=== PATIENT | male | born 1985 | race Caucasian/White ===

== ENCOUNTER 2016-08-31 22:21 | Inpatient (IN) | payer MEDICAID ==
[~2016-08-31] VITALS: Ht 175.3 cm; Wt 78.9 kg
[2016-08-31 23:11] LABS: Basophils # (auto) 0 uL; Basophils % (auto) 0.4 % (0.0-2.0); Eosinophils # (auto) 0.5 uL; Eosinophils % (auto) 5.2 % (0.0-7.0); Hematocrit 41.8 % (41.0-53.0); Hemoglobin 13.4 g/dL (13.5-17.5); Lymphocytes # (auto) 1.7 uL; Lymphocytes % (auto) 16.1 % (10.0-50.0); Mean Corpuscular Hemoglobin 29.8 pg (28.0-32.0); Mean Corpuscular Volume 92.9 fL (80.0-100.0); Mean Platelet Volume 7.4 fL (7.4-10.4); Monocytes # (auto) 0.9 uL; Neutrophils # (auto) 7.1 uL; Neutrophils % (auto) 69.3 % (37.0-80.0); Platelet Count (auto) 372 10^3/uL (140-450); Red Cell Distribution Width 12.6 % (11.6-16.0); White Blood Cell 10.3 10^3/uL (4.4-10.8)
[2016-08-31 23:27] LABS: INR 1.06 (0.9-1.15); Partial Thromboplastin Time 26.6 sec (22.64-33.71); Prothrombin Time 10.9 sec (9.37-12.3)
[2016-08-31 23:30] LABS: Albumin 3.7 g/dL (3.4-5.0); BUN/Creatinine Ratio 7.3; Calcium 8.5 mg/dL (8.5-10.1); Magnesium 2.4 mg/dL (1.6-2.6); Potassium 3.7 mmol/L (3.5-5.1)
[2016-08-31 23:33] LABS: Bilirubin, Total 0.4 mg/dL (0.2-1.0); Total Protein 7.4 g/dL (6.4-8.2)
[2016-09-01 00:23] LABS: Urine RBC None Seen /hpf (0 - 3)
[2016-09-01 00:43] LABS: Urine Bilirubin Negative (Negative); Urine Blood Negative /uL (Negative); Urine Color Yellow (Yellow); Urine Glucose Normal (Normal); Urine Ketone Negative (Negative); Urine Nitrite Negative (Negative); Urine Urobilinogen Normal (Negative); Urine pH 6.5 (5.0-8.0)
[2016-09-01] MEDS ORDERED: ENOXAPARIN SOD 80 MG/0.8ML SYRINGE SC ONE (02:45)
[2016-09-01] MEDS ORDERED: ASPirin 81 mg TAB PO ONE (02:45)
[2016-09-01] MEDS ORDERED: KETOROLAC TROMETH 30 MG/ML 1ML VIAL IV ONE (04:30)
[2016-09-01] MEDS ORDERED: NITROGLYCERIN 0.4 MG SL TAB SL PRN (05:00)
[2016-09-01] MEDS: SODIUM CHLORIDE 0.9% 1,000 ML IV SCH ×2 (05:15→17:26)
[2016-09-01] MEDS ORDERED: LORazepam 2MG/ML-1ML VIAL IV PRN (05:30)
[2016-09-01 06:26] VITALS: BP 126/75
[2016-09-01 08:00] VITALS: BP 116/73
[2016-09-01 08:39] LABS: Amylase 518 U/L (25-115)
[2016-09-01] MEDS ORDERED: METOPROLOL TARTRATE 25 MG TAB PO SCH (10:00)
[2016-09-01] MEDS ORDERED: ENALAPRIL MALEATE 10 MG TAB PO SCH (10:00)
[2016-09-01] MEDS: ASPirin 81 mg TAB PO SCH (10:24)
[2016-09-01 10:34] VITALS: BP 116/73
[2016-09-01 12:46] VITALS: BP 99/56
[2016-09-01] MEDS ORDERED: METOPROLOL TARTRATE 25 MG TAB PO ONE (15:15)
[2016-09-01 16:33] VITALS: BP 90/58
[2016-09-01] MEDS: MORPHINE SULF INJ 2 MG/ML SYRINGE 1ML IV PRN (19:32)
[2016-09-01 21:47] VITALS: BP 99/60
[2016-09-01] MEDS: ATORVASTATIN 20 MG TAB PO SCH (22:08)
[2016-09-01] MEDS: METOPROLOL TARTRATE 25 MG TAB PO SCH (22:09)
[2016-09-02] MEDS: MORPHINE SULF INJ 2 MG/ML SYRINGE 1ML IV PRN ×2 (00:40→08:32)
[2016-09-02 04:52] VITALS: BP 104/57
[2016-09-02 06:27] LABS: Basophils # (auto) 0 uL; Basophils % (auto) 0.3 % (0.0-2.0); Eosinophils # (auto) 0.5 uL; Eosinophils % (auto) 6.9 % (0.0-7.0); Hematocrit 37.5 % (41.0-53.0); Hemoglobin 11.9 g/dL (13.5-17.5); Lymphocytes # (auto) 1.9 uL; Lymphocytes % (auto) 26.2 % (10.0-50.0); Mean Corpuscular Hemoglobin 29.5 pg (28.0-32.0); Mean Corpuscular Hgb Conc. 31.6 g/dL (32.0-36.0); Mean Corpuscular Volume 93.3 fL (80.0-100.0); Mean Platelet Volume 7.9 fL (7.4-10.4); Monocytes # (auto) 0.7 uL; Monocytes % (auto) 9.4 % (0.0-12.0); Neutrophils # (auto) 4.1 uL; Neutrophils % (auto) 57.2 % (37.0-80.0); Platelet Count (auto) 310 10^3/uL (140-450); Red Cell Distribution Width 13.2 % (11.6-16.0); White Blood Cell 7.1 10^3/uL (4.4-10.8)
[2016-09-02 06:54] LABS: Albumin 2.8 g/dL (3.4-5.0); BUN/Creatinine Ratio 10.4; Bilirubin, Total 0.1 mg/dL (0.2-1.0); Potassium 4.1 mmol/L (3.5-5.1); Total Protein 5.9 g/dL (6.4-8.2)
[2016-09-02 08:30] VITALS: BP 120/68
[2016-09-02] MEDS: SODIUM CHLORIDE 0.9% 1,000 ML IV SCH ×2 (08:32→18:26)
[2016-09-02] MEDS: ASPirin 81 mg TAB PO SCH (09:42)
[2016-09-02] MEDS: METOPROLOL TARTRATE 25 MG TAB PO SCH ×2 (09:42→21:35)
[2016-09-02 13:09] VITALS: BP 114/61
[2016-09-02 16:32] VITALS: BP 93/44
[2016-09-02] MEDS: ATORVASTATIN 20 MG TAB PO SCH (21:35)
[2016-09-02] MEDS: LACTULOSE 20Gm/30ML SOLN PO SCH (21:36)
[2016-09-02 22:50] VITALS: BP 116/60
[2016-09-03 05:18] VITALS: BP 107/63
[2016-09-03] MEDS: SODIUM CHLORIDE 0.9% 1,000 ML IV SCH (06:38)
[2016-09-03 06:56] LABS: Albumin 3.4 g/dL (3.4-5.0); BUN/Creatinine Ratio 16.7; Bilirubin, Total 0.2 mg/dL (0.2-1.0); Calcium 8.8 mg/dL (8.5-10.1); Potassium 3.9 mmol/L (3.5-5.1); Total Protein 7.1 g/dL (6.4-8.2)
[2016-09-03 09:00] VITALS: BP 103/55
[2016-09-03] MEDS: ASPirin 81 mg TAB PO SCH (09:28)
[2016-09-03] MEDS: METOPROLOL TARTRATE 25 MG TAB PO SCH ×2 (09:28→21:35)
[2016-09-03] MEDS: LACTULOSE 20Gm/30ML SOLN PO SCH ×2 (09:29→21:39)
[2016-09-03 13:00] VITALS: BP 123/67
[2016-09-03 17:00] VITALS: BP 128/64
[2016-09-03] MEDS: ATORVASTATIN 20 MG TAB PO SCH (21:37)
[2016-09-03 22:13] VITALS: BP 107/63
[2016-09-03] MEDS ORDERED: OXYMETAZOLINE HCL 0.05 % NASAL SPRAY 15ML PRN (22:30)
[2016-09-04 05:00] VITALS: BP 111/65
[2016-09-04 08:00] VITALS: BP 118/69
[2016-09-04] MEDS ORDERED: IOHEXOL 350 MG/ML 100ML IJ ONE (08:17)
[2016-09-04] MEDS ORDERED: NITROGLYCERIN 0.4 MG SL TAB SL ONE (08:40)
[2016-09-04] MEDS ORDERED: METOPROLOL TARTRATE 1MG/1ML-5ML VIAL IV ONE (08:40)
[2016-09-04 09:00] VITALS: BP 118/69
[2016-09-04] MEDS: LACTULOSE 20Gm/30ML SOLN PO SCH (10:00)
[2016-09-04] MEDS: METOPROLOL TARTRATE 25 MG TAB PO SCH (10:25)
[2016-09-04] MEDS: ASPirin 81 mg TAB PO SCH (10:25)
[2016-09-04 13:00] VITALS: BP 129/74
[2016-09-04 15:42] VITALS: BP 129/74
[2016-09-04 17:00] VITALS: BP 108/67
== END 2016-09-04 18:50 | disposition home or self-care (01) | DRG 203 ==
LOC: ER 22:26 → TELE 22:27 → TELE-CENTR 09-01 06:04
PROVIDERS: ADMIT Family Medicine; ATTEND Internal Medicine
PROC: B2211ZZ Computerized Tomography (CT Scan) of Multiple Coronary Arteries using Low Osmolar Contrast (ICD-10-PCS; principal; 2016-09-04)
PROC: B2261ZZ Computerized Tomography (CT Scan) of Right and Left Heart using Low Osmolar Contrast (ICD-10-PCS; 2016-09-04)
DX: R07.9 Chest pain, unspecified (principal); F15.10 Other stimulant abuse, uncomplicated; F17.200 Nicotine dependence, unspecified, uncomplicated; F12.10 Cannabis abuse, uncomplicated; Z71.41 Alcohol abuse counseling and surveillance of alcoholic; Z71.6 Tobacco abuse counseling
CPT/HCPCS: 36415; 71020; 75574; 80053; 80061; 81001; 82150; 83690; 83735; 84443; 84484; 85025; 85379; 85610; 85730; 93005; 93306; 96372; 96374; 96375; G0434; J1885